=== PATIENT | female | born 1960 | race Two or more races ===

== ENCOUNTER 2019-08-05 06:15 | Day surgery (SDC) | payer OTHER ==
[~2019-08-05 06:15] MED LIST: BUPROPION XL150 MG; CLONAZEPAM0.5 MG; FLECTOR1 EACH TOP; FORTAMET500 MG; GABAPENTIN300 MG; GABAPENTIN600 MG; LAMISIL125 ML; LIPITOR20 MG; MONTELUKAST SOD10 MG; NABUMETONE500 MG PO; PERCOCET 5/3251 TAB PO; VENLAFAXINE HC150 M1; ZESTRIL40 M1
[2019-08-05] MEDS ORDERED: ULTRACET PO (10:09)
[2019-08-05] MEDS ORDERED: KEFLEX500 MG PO (10:09)
== END 2019-08-05 12:20 | disposition home or self-care (01) ==
LOC: CIR.AMB 06:15
DX: K59.09 Other constipation (principal); R15.9 Full incontinence of feces
CPT/HCPCS: 64581; C1778

== ENCOUNTER 2019-08-17 05:15 | Day surgery (SDC) | payer OTHER ==
[~2019-08-17 05:15] MED LIST changes: +KEFLEX500 MG PO; +ULTRACET PO
[2019-08-17] MEDS ORDERED: ULTRACET PO (13:13)
== END 2019-08-17 15:11 | disposition home or self-care (01) ==
LOC: CIR.AMB 05:15 → ADM 10:00 → CIR.AMB 11:30
DX: R15.9 Full incontinence of feces (principal)
CPT/HCPCS: 64590; C1767